=== PATIENT | female | born 2000 | race Caucasian/White ===

== ENCOUNTER 2020-04-03 15:05 | Emergency (ER) | payer OTHER ==
[2020-04-03] MEDS ORDERED: FENTANYL CITR 100 MCG/2 ML ONE (16:01)
--- NOTE | 2020-04-03 16:04 | ER ---
Nurse's Notes [facility] Name: Morenita El Age: 20 yrs Sex: Female : 2000 Arrival Date: 04/03/2020 Time: 15:07 Bed 13 Private MD: Diagnosis: Localized swelling, mass and lump, neck Presentation: 04/03 15:15 Chief complaint: Patient states: "I have a cyst on the right side of my neck that I jd3 have had for awhile. I was supposed to have it removed in October, but COVID cancelled my appointment. I feel it getting bigger and it hurts more. it is rock hard too.". Coronavirus screen: At this time, the client does not indicate any symptoms associated with coronavirus-19. Ebola Screen: Patient negative for fever greater than or equal to 101.5 degrees Fahrenheit, and additional compatible Ebola Virus Disease symptoms. Initial Sepsis Screen: Does the patient meet any 2 criteria? No. Patient's initial sepsis screen is negative. Does the patient have a suspected source of infection? No. Patient's initial sepsis screen is negative. Risk Assessment: Do you want to hurt yourself or someone else? Patient reports no desire to harm self or others. Onset of symptoms was April 03, 2020. 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 - Social history:: Smoking status: Patient reports the use of cigarette tobacco products, smokes 0.25 packs per day. Screenin:21 Abuse screen: Denies threats or abuse. Denies injuries from another. Nutritional ca1 screening: No deficits noted. Tuberculosis screening: No symptoms or risk factors identified. Fall Risk None identified. Assessment: 15:20 General: Appears in no apparent distress. comfortable, Behavior is calm, cooperative, ca1 appropriate for age. Pain: Complains of pain in right sternocleidomastoid Pain does not radiate. Pain currently is 8 out of 10 on a pain scale. Neuro: Level of Consciousness is awake, alert, obeys commands, Oriented to person, place, time, situation. Derm: Skin is intact, is healthy with good turgor, Skin is pink, warm \\T\\ dry. Cyst on right side of neck, hard and tender upon palpation. Pt reports, been there for 2 years. Was scheduled removal on October but has not been done. Pain just started. Musculoskeletal: Circulation, motion, and sensation intact. Capillary refill < 3 seconds. 16:13 Reassessment: Patient appears in no apparent distress at this time. Patient is alert, ca1 oriented x 3, equal unlabored respirations, skin warm/dry/pink. Vital Signs: 15:18 BP 154 / 100; Pulse 104; Resp 17 S; Temp 98.5(TE); Pulse Ox 100% on R/A; Weight 104.33 jd3 kg (R); Height 5 ft. 4 in. (162.56 cm) (R); Pain 7/10; 15:21 BP 138 / 86; Pulse 100; Resp 15 S; Pulse Ox 98% on R/A; ca1 16:13 BP 122 / 80; Pulse 98; Resp 15 S; Pulse Ox 99% on R/A; ca1 15:18 Body Mass Index 39.48 (104.33 kg, 162.56 cm) jd3 ED Course: 15:07 Patient arrived in ED. ds1 15:15 Cally Phipps, MIKHAIL is Primary Nurse. ca1 15:15 Jillian Ferguson FNP-C is PHCP. snw 15:15 Duane Saha MD is Attending Physician. snw 15:17 Triage completed. jd3 15:19 Arm band placed on. jd3 15:21 Patient has correct armband on for positive identification. Bed in low position. Call ca1 light in reach. Side rails up X 1. Pulse ox on. NIBP on. Warm blanket given. 16:14 No provider procedures requiring assistance completed. Patient did not have IV access ca1 during this emergency room visit. Administered Medications: 15:40 Drug: Clindamycin 300 mg Route: PO; ca1 16:07 Follow up: Response: No adverse reaction ca1 15:42 Drug: fentaNYL (PF) 50 mcg {Note: RASS 0.} Route: IM; Site: right gluteus; ca1 16:07 Follow up: Response: No adverse reaction; Pain is decreased; RASS: Alert and Calm (0) ca1 16:07 Drug: Jud 5 mg-325 mg 1 tabs {Note: RASS 0.} Route: PO; ca1 16:07 Follow up: Response: No adverse reaction; Medication administered at discharge. ca1 Outcome: 16:03 Discharge ordered by . fabio 16:14 Discharged to home ambulatory. ca1 16:14 Condition: stable 16:14 Discharge instructions given to patient, reports BF is waiting outside to drive her home Instructed on discharge instructions, follow up and referral plans. no drinking with medication, no driving heavy equipment, medication usage, Demonstrated understanding of instructions, follow-up care, medications, Prescriptions given X 2. 16:15 Patient left the ED. ca1 Signatures: Jillian Ferguson, LAB MANAGER-C LAB MANAGER-Csnw Cecilia Kaiser ds1 Laryr Garcia RN RN jCally Ferrera RN RN ca1 Corrections: (The following items were deleted from the chart) 15:23 15:20 Derm: Skin is intact, is healthy with good turgor, Skin is pink, warm \\T\\ dry. ca1 ca1 15:24 15:20 Derm: Skin is intact, is healthy with good turgor, Skin is pink, warm \\T\\ dry. lump ca1 on right side of neck, hard and tender upon palpation ca1 16:13 15:20 Derm: Skin is intact, is healthy with good turgor, Skin is pink, warm \\T\\ dry. lump ca1 on right side of neck, hard and tender upon palpation. Pt reports, been there for 2 years. Was scheduled removal on October but has not been done. Pain just started. ca1
--- NOTE | 2020-04-03 16:04 | EDPHYS ---
Physician Documentation [facility] Name: Morenita El Age: 20 yrs Sex: Female : 2000 Arrival Date: 04/03/2020 Time: 15:07 Bed 13 Private MD: ED Physician Duane Saha HPI: 04/03 16:05 This 20 yrs old Female presents to ER via Ambulatory with complaints of Cyst. snw 16:05 Onset: The symptoms/episode began/occurred gradually, 2 year(s) ago, and became worse 3 snw day(s) ago. Associated signs and symptoms: Pertinent positives: The patient does not have any pertinent positive signs or symptoms associated with pediatric illness. It is unknown whether or not the patient has had similar symptoms in the past. The patient has not recently seen a physician. supposed to have mass removed, pt states apt postponed 2nd to pandemic. 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 - Social history:: Smoking status: Patient reports the use of cigarette tobacco products, smokes 0.25 packs per day. ROS: 16:05 Constitutional: Negative for fever, chills, and weight loss, Eyes: Negative for injury, snw pain, redness, and discharge, ENT: Negative for injury, pain, and discharge, Cardiovascular: Negative for chest pain, palpitations, and edema, Respiratory: Negative for shortness of breath, cough, wheezing, and pleuritic chest pain, Abdomen/GI: Negative for abdominal pain, nausea, vomiting, diarrhea, and constipation, Back: Negative for injury and pain, : Negative for injury, bleeding, discharge, and swelling, MS/Extremity: Negative for injury and deformity, Skin: Negative for injury, rash, and discoloration, Neuro: Negative for headache, weakness, numbness, tingling, and seizure, Psych: Negative for depression, anxiety, suicide ideation, homicidal ideation, and hallucinations. 16:05 Neck: Positive for mass, tenderness, of the right sternocleidomastoid. Exam: 16:01 Constitutional: This is a well developed, well nourished patient who is awake, alert, snw and in no acute distress. Head/Face: Normocephalic, atraumatic. Eyes: Pupils equal round and reactive to light, extra-ocular motions intact. Lids and lashes normal. Conjunctiva and sclera are non-icteric and not injected. Cornea within normal limits. Periorbital areas with no swelling, redness, or edema. ENT: Nares patent. No nasal discharge, no septal abnormalities noted. Tympanic membranes are normal and external auditory canals are clear. Oropharynx with no redness, swelling, or masses, exudates, or evidence of obstruction, uvula midline. Mucous membranes moist. Chest/axilla: Normal chest wall appearance and motion. Nontender with no deformity. No lesions are appreciated. Respiratory: Lungs have equal breath sounds bilaterally, clear to auscultation and percussion. No rales, rhonchi or wheezes noted. No increased work of breathing, no retractions or nasal flaring. Abdomen/GI: Soft, non-tender, with normal bowel sounds. No distension or tympany. No guarding or rebound. No evidence of tenderness throughout. Back: No spinal tenderness. No costovertebral tenderness. Full range of motion. Skin: Warm, dry with normal turgor. Normal color with no rashes, no lesions, and no evidence of cellulitis. MS/ Extremity: Pulses equal, no cyanosis. Neurovascular intact. Full, normal range of motion. Neuro: Awake and alert, GCS 15, oriented to person, place, time, and situation. Cranial nerves II-XII grossly intact. Motor strength 5/5 in all extremities. Sensory grossly intact. Cerebellar exam normal. Normal gait. 16:01 Neck: External neck: no acute changes, mass, that is small, of the right sternocleidomastoid, that is tender to palpation, no erythema, + tenderness, + mobile, + spongy texture. 16:01 Cardiovascular: Rate: tachycardic, Rhythm: regular, Pulses: no pulse deficits are appreciated, Heart sounds: normal, Edema: is not appreciated. 16:01 Psych: Behavior/mood is cooperative, annoyed cyst is still there x 2 years. Vital Signs: 15:18 BP 154 / 100; Pulse 104; Resp 17 S; Temp 98.5(TE); Pulse Ox 100% on R/A; Weight 104.33 jd3 kg (R); Height 5 ft. 4 in. (162.56 cm) (R); Pain 7/10; 15:21 BP 138 / 86; Pulse 100; Resp 15 S; Pulse Ox 98% on R/A; ca1 16:13 BP 122 / 80; Pulse 98; Resp 15 S; Pulse Ox 99% on R/A; ca1 15:18 Body Mass Index 39.48 (104.33 kg, 162.56 cm) jd3 MDM: 15:16 Patient medically screened. snw 16:06 Data reviewed: vital signs, nurses notes. Data interpreted: Pulse oximetry: on room air snw is 98 %. Interpretation: normal. Counseling: I had a detailed discussion with the patient and/or guardian regarding: the historical points, exam findings, and any diagnostic results supporting the discharge/admit diagnosis, lab results, the need for outpatient follow up, to return to the emergency department if symptoms worsen or persist or if there are any questions or concerns that arise at home. Special discussion: I have referred the patient to see his PCP for further evaluation of high blood pressure. Based on the history and exam findings, there is no indication for further emergent testing or inpatient evaluation. I discussed with the patient/guardian the need to see the general surgeon for further evaluation of the symptoms. I discussed with the patient/guardian the need to see the primary care provider for further evaluation of the symptoms. Administered Medications: 15:40 Drug: Clindamycin 300 mg Route: PO; ca1 16:07 Follow up: Response: No adverse reaction ca1 15:42 Drug: fentaNYL (PF) 50 mcg {Note: RASS 0.} Route: IM; Site: right gluteus; ca1 16:07 Follow up: Response: No adverse reaction; Pain is decreased; RASS: Alert and Calm (0) ca1 16:07 Drug: [place] 5 mg-325 mg 1 tabs {Note: RASS 0.} Route: PO; ca1 16:07 Follow up: Response: No adverse reaction; Medication administered at discharge. ca1 Disposition: 04/03/20 16:03 Discharged to Home. Impression: Localized swelling, mass and lump, neck. - Condition is Stable. - Discharge Instructions: Lumpectomy, Care After, Lumpectomy. - Prescriptions for Clindamycin HCl 150 mg Oral Capsule - take 2 capsule by ORAL route every 8 hours for 10 days; 60 capsule. Ultram 50 mg Oral Tablet - take 1 tablet by ORAL route every 6 hours As needed; 12 tablet. - Medication Reconciliation Form, Thank You Letter, Antibiotic Education, Prescription Opioid Use, Work release form form. - Follow up: Private Physician; When: 2 - 3 days; Reason: Recheck today's complaints, Continuance of care, Re-evaluation by your physician. Follow up: Emergency Department; When: As needed; Reason: Worsening of condition. Addendum: 04/06/2020 08:22 Co-signature as Attending Physician, Duane Saha MD I agree with the assessment and k dr plan of care. Signatures: Duane Saha MD MD [facility] Jillian Ferguson, KILN PUSHER-C KILN PUSHER-Csnw Larry Garcia RN RN jd3 AcCally liz RN RN ca1 Corrections: (The following items were deleted from the chart) 04/03 16:15 16:03 04/03/2020 16:03 Discharged to Home. Impression: Localized swelling, mass and ca1 lump, neck. Condition is Stable. Forms are Medication Reconciliation Form, Thank You Letter, Antibiotic Education, Prescription Opioid Use. Follow up: Private Physician; When: 2 - 3 days; Reason: Recheck today's complaints, Continuance of care, Re-evaluation by your physician. Follow up: Emergency Department; When: As needed; Reason: Worsening of condition. snw
[2020-04-03] MEDS ORDERED: HYDROCODONE/APAP 5/325 MG TAB ONE (16:17)
[2020-04-03 16:26] VITALS: TEMP 98.5
[2020-04-03 16:36] VITALS: BP 122/80; O2SAT 99
== END 2020-04-03 16:15 | disposition home or self-care (01) ==
LOC: ER 15:05
DX: R22.1 Localized swelling, mass and lump, neck (principal); F17.210 Nicotine dependence, cigarettes, uncomplicated; Z88.2 Allergy status to sulfonamides
CPT/HCPCS: 96372; 99283; J3010

== ENCOUNTER 2020-04-08 09:32 | Day surgery (SDC) | payer OTHER ==
--- OUTSIDE RECORDS SUMMARY | 2020-04-08 09:38 | XMS REPORT | Continuity of Care Document ---
:2000 Author Organization [facility] t Address [address] [place] [address] Care Team Providers Name Role Phone Pcp, Does Not Have A Attending Clinician Rio WATSON Attending Clinician Doctor Unassigned, Name Attending Clinician Unavailable Problems This patient has no known problems. Allergies, Adverse Reactions, Alerts This patient has no known allergies or adverse reactions. Medications This patient has no known medications. Procedures This patient has no known procedures. Encounters Start End Encounter Admission Attending Care Care Encounter Source Date/Time Date/Time Type Type Clinicians Facility Department ID 2019-12-29 2019-12-29 Telephone EVAN Cruz [id number] 00:00:00 00:00:00 Patient Donny [id number] Does Not [place] [id number] Have A Professio [phone] formerly [facility] 188 [facility] 2019-10-29 2019-10-29 Office EVAN Pate [id number] 14:59:43 16:45:57 Visit Kavitha Hines [id number] [place] [id number] Casey [phone] formerly [facility] 377 [facility] 2019-10-29 2019-10-29 Orders Doctor SILVEIRA [id number] 00:00:00 00:00:00 Only Unassigned, PELON [id number] [place] [phone] [id number] Results This patient has no known results.
[2020-04-08 10:30] LABS: Basophils % 0.7 % (0-1.3); Hematocrit 43.3 % (36.0-45.0); Lymphocytes % 30.3 % (15.3-44.8); MPV 9.2 fL (7.6-11.3); RBC Red Blood Cell Count 5.03 M/uL (3.86-4.86)
[2020-04-08] MEDS ORDERED: Ringers Lactate 1,000 ML IV ONE (10:32)
[2020-04-08] MEDS ORDERED: CEFAZOLIN/SWI 2gm 2 GM/20 ML SYR ONE (10:36)
[2020-04-08 10:43] LABS: Potassium 3.4 mmol/L (3.5-5.1)
[2020-04-08] MEDS ORDERED: BUPIVACA 0.25%/EPI 0.0005% MDV 50 ML VIAL ONE (11:06)
[2020-04-08] MEDS ORDERED: propofoL 200 MG/20 ML VIAL IV ONE (11:09)
[2020-04-08] MEDS ORDERED: FENTANYL CITR 100 MCG/2 ML ONE (11:09)
[2020-04-08] MEDS ORDERED: MIDAZOLAM HCL 2 MG/2 ML INJ ONE (11:09)
[2020-04-08] MEDS ORDERED: ONDANSETRON 4 MG/2 ML VIAL ONE (11:10)
[2020-04-08] MEDS ORDERED: LIDOCAINE 2% MPF 5 ML VIAL ONE (11:10)
[2020-04-08] MEDS ORDERED: dexAMETHasone 10 MG/ML VIAL ONE (11:10)
--- NOTE | 2020-04-08 11:52 | P.OP ---
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
[2020-04-08] MEDS ORDERED: KETOROLAC 30 MG/ML INJ ONE (11:57)
--- NOTE | 2020-04-08 12:40 | OP ---
Date of Procedure: 04/08/2020 Surgeon: Kristian Glynn MD, Preoperative Diagnosis: Right neck cyst along the sternocleidomastoid. Postoperative Diagnosis: Right neck cyst along the sternocleidomastoid. Procedure Performed: Wide local excision of right neck cyst along the sternocleidomastoid. Anesthesia: General endotracheal with local with 0.25% Marcaine with epinephrine. Estimated Blood Loss: Less than 5 mL. Specimen: Debrided tissue and cultures for aerobic and anaerobic speciation. Findings: Infected sebaceous cyst of the right neck approximately 4 cm round with abscess. Complications: None Transferred to recovery room in good condition. Procedure In Detail: After informed was obtained, the patient was brought to the operating room and prepped draped in the usual sterile fashion. After adequate anesthesia was achieved, skin for approx imately 3.5 cm was taken down using a 15 blade down to subcutaneous tissues. Electrocautery was used to dissect down circumferentially down to the sternocleidomastoid containing cyst. Abscess material was encountered immediately along with evidence of infected sebaceous cyst. This appeared to have r uptured previously. I dissected circumferentially using blunt dissection down on top of the sternocl eidomastoid, not entering the fascia. I then ligated this using electrocautery and sent the specimen for pathologic examination. After obtaining cultures, I copiously irrigated the area. Hemostasis w as achieved with minimal electrocautery. The area was copiously irrigated once again, closed with an interrupted deep dermal layer of 3-0 Vicryl and the skin was closed with a 4-0 Monocryl in a running fashion. Dermabond was placed on top. The patient tolerated the procedure well without evidence of complication, transferred to PACU in good condition. All counts were correct at the end of the case . TK/MODL Voice ID: [id number] Report ID: [id number]
[2020-04-08 13:29] VITALS: TEMP 97.2
[2020-04-08 13:31] VITALS: BP 132/79; O2SAT 98
== END 2020-04-08 13:10 | disposition home or self-care (01) ==
LOC: OR 09:32
PROVIDERS: ATTEND Surgery
PROC: 0HB4XZZ Excision of Neck Skin, External Approach (ICD-10-PCS; principal; 2020-04-08 10:45)
DX: L72.0 Epidermal cyst (principal); L02.11 Cutaneous abscess of neck; F17.210 Nicotine dependence, cigarettes, uncomplicated; Z88.2 Allergy status to sulfonamides; Z11.59 Encounter for screening for other viral diseases
CPT/HCPCS: 87070; 85025; 80048; 36415; 87205; 84703; 88304; 87075; U0002; J2704; J2250; J3010; J1100; J0690; J7120; J2405; 88305

== ENCOUNTER 2021-01-27 11:19 | Emergency (ER) | payer OTHER ==
--- OUTSIDE RECORDS SUMMARY | 2021-01-27 11:22 | XMS REPORT | Continuity of Care Document ---
:2000 Author Organization [facility] t Address [address] [place] [address] Care Team Providers Name Role Phone Pcp, [...] Department ID 2019-12-29 2019-12-29 Telephone EVAN Cruz [id number] 00:00:00 00:00:00 Patient Donny [id number] Does Not [place] [id number] Have A Professio [phone] [facility] 188 [facility] 2019-10-29 2019-10-29 Office EVAN Pate [id number] 14:59:43 16:45:57 Visit Kavitha Hines [id number] [place] [id number] Casey [phone] [facility] 377 [facility] 2019-10-29 2019-10-29 Orders Doctor SILVEIRA [id number] 00:00:00 00:00:00 Only Unassigned, PELON [id number] [place] [phone] [id number] Results This patient has no known results.
[2021-01-27 12:16] LABS: Absolute Lymphocytes (CBC) 2.6 K/uL (0.7-4.9); Basophils % 0.8 % (0-1.3); Hematocrit 41.9 % (36.0-45.0); Lymphocytes % 34.1 % (15.3-44.8); MPV 9.2 fL (7.6-11.3); RBC Red Blood Cell Count 4.79 M/uL (3.86-4.86)
[2021-01-27 12:23] LABS: Protime INR 1.15
[2021-01-27 12:36] LABS: ALT/SGPT 29 U/L (12-78); AST/SGOT 13 U/L (15-37); Albumin 3.9 g/dL (3.4-5.0); Alkaline Phosphatase 85 U/L (45-117); BUN Blood Urea Nitrogen 11 mg/dL (7-18); Bicarbonate 25 mmol/L (21-32); Bilirubin Direct 0.2 mg/dL (0-0.2); Bilirubin Total 0.8 mg/dL (0.2-1.0); Glucose Level 83 mg/dL (74-106); Magnesium 2.5 mg/dL (1.8-2.4); NT PRO-BNP 67 pg/mL (<125); Potassium 3.7 mmol/L (3.5-5.1); Protein, Total 8.3 g/dL (6.4-8.2); Sodium Level 142 mmol/L (136-145); Troponin (Emerg Dept Use Only) < 0.02 ng/mL (0.0-0.045)
--- NOTE | 2021-01-27 12:59 | RAD REPORT ---
EXAM DESCRIPTION: RAD - Chest Single View - 01/27/2021 12:13 pm CLINICAL HISTORY: SOB Chest pain. COMPARISON: CHEST PA AND LAT 2 VIEW dated 03/12/2014 FINDINGS: Portable technique limits examination quality. The lungs are grossly clear. The heart is normal in size. No displaced fractures. IMPRESSION: No acute intrathoracic process suspected.
--- NOTE | 2021-01-27 13:55 | ER ---
Nurse's Notes [facility] Name: Morenita El Age: 20 yrs Sex: Female : 2000 Arrival Date: 01/27/2021 Time: 11:20 Bed 7 Private MD: Diagnosis: Acute pharyngitis;Acute upper respiratory infection, unspecified Presentation: 01/27 11:21 Chief complaint: Patient states: Reports right-sided "Lung" pain, sharp pain with jl7 inspiration since this morning, reports red throat this morning. Coronavirus screen: Client denies travel out of the [place] in the last 14 days. sore throat, Client presents with at least one sign or symptom that may indicate coronavirus-19. Standard/surgical mask placed on the client. Provider contacted for isolation considerations. Ebola Screen: No symptoms or risks identified at this time. Initial Sepsis Screen: Does the patient meet any 2 criteria? No. Patient's initial sepsis screen is negative. Does the patient have a suspected source of infection? No. Patient's initial sepsis screen is negative. Risk Assessment: Do you want to hurt yourself or someone else? Patient reports no desire to harm self or others. Onset of symptoms was January 27, 2021. Care prior to arrival: Tylenol Cold and Flu. 11:21 Method Of Arrival: Ambulatory [facility] 11:21 Acuity: SAYDA 3 jl7 Triage Assessment: 11:28 General: Appears in no apparent distress. uncomfortable, Behavior is calm, cooperative, jl7 appropriate for age. Pain: Complains of pain in right lateral posterior chest and right lateral anterior chest Pain currently is 2 out of 10 on a pain scale. Respiratory: Reports pain with respiration Onset: The symptoms/episode began/occurred this morning, the patient has mild shortness of breath. 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 - Social history:: Smoking status: Patient reports the use of cigarette tobacco products, cigars. Screenin:15 Abuse screen: Denies threats or abuse. Denies injuries from another. Nutritional hb screening: No deficits noted. Tuberculosis screening: No symptoms or risk factors identified. Fall Risk None identified. Assessment: 12:00 General: Appears in no apparent distress. Behavior is calm, cooperative. Pain: Pain hb currently is 2 out of 10 on a pain scale. Neuro: Level of Consciousness is awake, alert, obeys commands, Oriented to person, place, time, situation. Cardiovascular: Reports chest pain, Rhythm is regular. Respiratory: Reports shortness of breath Airway is patent Respiratory effort is even, unlabored, Respiratory pattern is regular, symmetrical. GI: : No signs and/or symptoms were reported regarding the genitourinary system. EENT: No signs and/or symptoms were reported regarding the EENT system. Derm: Skin is pink, warm \\T\\ dry. Musculoskeletal: No signs and/or symptoms reported regarding the musculoskeletal system. 12:56 Reassessment: Patient appears in no apparent distress at this time. Patient and/or hb family updated on plan of care and expected duration. Pain level reassessed. Patient is alert, oriented x 3, equal unlabored respirations, skin warm/dry/pink. 14:13 Reassessment: Patient appears in no apparent distress at this time. Patient and/or sv family updated on plan of care and expected duration. Pain level reassessed. Patient is alert, oriented x 3, equal unlabored respirations, skin warm/dry/pink. Patient states feeling better. Patient states symptoms have improved. Vital Signs: 11:21 BP 127 / 77; Pulse 85; Resp 21; Temp 98.5; Pulse Ox 99% ; Weight 104.33 kg; Height 5 jl7 ft. 4 in. (162.56 cm); Pain 2/10; 14:13 BP 113 / 70; Pulse 80; Resp 18; Pulse Ox 99% ; sv 11:21 Body Mass Index 39.48 (104.33 kg, 162.56 cm) jl7 ED Course: 11:20 Patient arrived in ED. ds1 11:27 Triage completed. jl7 11:28 Arm band placed on right wrist. jl7 11:30 Radha Turpin, MIKHAIL is Primary Nurse. ld1 11:32 Arvin Albright PA is PHCP. [facility] 11:32 Wilver Joe MD is Attending Physician. jmm 12:11 Inserted saline lock: 20 gauge in right antecubital area, using aseptic technique. ld1 Blood collected. 12:13 XRAY Chest (1 view) In Process Unspecified. EDMS 12:15 Patient has correct armband on for positive identification. Placed in gown. Bed in low hb position. Call light in reach. Side rails up X 1. nuclear monitoring technician on. Pulse ox on. NIBP on. 14:13 No provider procedures requiring assistance completed. IV discontinued, intact, sv bleeding controlled, No redness/swelling at site. Pressure dressing applied. Administered Medications: No medications were administered Outcome: 13:54 Discharge ordered by MD. pam 14:13 Discharged to home ambulatory. sv 14:13 Condition: stable 14:13 Discharge instructions given to patient, Instructed on discharge instructions, follow up and referral plans. medication usage, Demonstrated understanding of instructions, follow-up care, medications, Prescriptions given X 2. 14:14 Patient left the ED. sv Signatures: Dispatcher [employer] EDMS Shea Hendricks, RN RN Arvin Aguilar PA PA jmm Sanford, Demi ds1 Nhi Mcgrath RN RN Rai Leigh RN RN jl7 Radha Turpin RN RN ld1
--- NOTE | 2021-01-27 13:55 | EDPHYS ---
Physician Documentation [facility] Name: Morenita El Age: 20 yrs Sex: Female : 2000 Arrival Date: 01/27/2021 Time: 11:20 Bed 7 Private MD: ED Physician Wilver Joe HPI: 01/27 11:49 This 20 yrs old Female presents to ER via Ambulatory with complaints of jmm Breathing Difficulty. 11:49 Onset: The symptoms/episode began/occurred gradually, today. Modifying factors: The jmm symptoms are alleviated by nothing. the symptoms are aggravated by nothing. Associated signs and symptoms: Pertinent positives: sore throat. This is a 20 year old female with a history of PCOS that presents to the ED with complaints of sob, with pain on inhalation beginning this morning. Also complains of sore throat, shortness of breath. Patient states she nearly passed out at work. . 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 - Social history:: Smoking status: Patient reports the use of cigarette tobacco products, cigars. ROS: 11:49 Constitutional: Positive for fatigue. jmm 11:49 ENT: Positive for sore throat. 11:49 Respiratory: Positive for cough, shortness of breath. 11:49 All other systems are negative. Exam: 11:49 Constitutional: This is a well developed, well nourished patient who is awake, alert, jmm and in no acute distress. Head/Face: atraumatic. Eyes: EOMI, no conjunctival erythema appreciated 11:49 Neck: Trachea midline, Supple Chest/axilla: Normal chest wall appearance and motion. Cardiovascular: Regular rate and rhythm. No edema appreciated Respiratory: Normal respirations, no respiratory distress appreciated Abdomen/GI: Non distended, soft Back: Normal ROM Skin: General appearance color normal MS/ Extremity: Moves all extremities, no obvious deformities appreciated, no edema noted to the lower extremities Neuro: Awake and alert, normal gait Psych: Behavior is normal, Mood is normal, Patient is cooperative and pleasant 11:49 ENT: Posterior pharynx: erythema, that is mild. Vital Signs: 11:21 BP 127 / 77; Pulse 85; Resp 21; Temp 98.5; Pulse Ox 99% ; Weight 104.33 kg; Height 5 7 ft. 4 in. (162.56 cm); Pain 2/10; 14:13 BP 113 / 70; Pulse 80; Resp 18; Pulse Ox 99% ; sv 11:21 Body Mass Index 39.48 (104.33 kg, 162.56 cm) jl7 MDM: 11:49 Patient medically screened. [facility] 13:51 Data reviewed: vital signs, nurses notes. Counseling: I had a detailed discussion with pam the patient and/or guardian regarding: the historical points, exam findings, and any diagnostic results supporting the discharge/admit diagnosis, lab results, radiology results, the need for outpatient follow up, to return to the emergency department if symptoms worsen or persist or if there are any questions or concerns that arise at home. ED course: Patient is alert and non toxic in appearance in the ED. Normal VS. Advised to follow up with pcp and otherwise given strict return precautions. Patient understood and agrees with the plan of care. . 01/27 11:51 Order name: Basic Metabolic Panel; Complete Time: 12:40 [facility] 01/27 11:51 Order name: CBC with Diff; Complete Time: 12:21 [facility] 01/27 11:51 Order name: LFT's; Complete Time: 12:40 [facility] 01/27 11:51 Order name: Magnesium; Complete Time: 12:40 [facility] 01/27 11:51 Order name: NT PRO-BNP; Complete Time: 12:40 [facility] 01/27 11:51 Order name: PT-INR; Complete Time: 12:40 [facility] 01/27 11:51 Order name: Troponin (emerg Dept Use Only); Complete Time: 12:40 [facility] 01/27 11:51 Order name: D-Dimer; Complete Time: 12:40 [facility] 01/27 11:51 Order name: Strep; Complete Time: 12:40 [facility] 01/27 11:51 Order name: Flu; Complete Time: 12:40 [facility] 01/27 11:53 Order name: CPK; Complete Time: 13:10 [facility] 01/27 12:36 Order name: Throat Culture EDCT 01/27 13:18 Order name: SARS-COV-2 RT PCR; Complete Time: 13:24 [facility] 01/27 11:51 Order name: XRAY Chest (1 view); Complete Time: 13:01 [facility] 01/27 11:51 Order name: EKG; Complete Time: 11:52 [facility] 01/27 11:51 Order name: Cardiac monitoring; Complete Time: 12:12 [facility] 01/27 11:51 Order name: EKG - Nurse/Tech; Complete Time: 12:12 [facility] 01/27 11:51 Order name: IV Saline Lock; Complete Time: 12:12 [facility] 01/27 11:51 Order name: Labs collected and sent; Complete Time: 12:12 [facility] 01/27 11:51 Order name: O2 Per Protocol; Complete Time: 12:12 [facility] 01/27 11:51 Order name: O2 Sat Monitoring; Complete Time: 12:12 [facility] Administered Medications: No medications were administered Disposition: 14:36 Co-signature as Attending Physician, Wilver Joe MD. rn Disposition: 01/27/21 13:54 Discharged to Home. Impression: Acute pharyngitis, Acute upper respiratory infection, unspecified. - Condition is Stable. - Discharge Instructions: Pharyngitis, Upper Respiratory Infection, Adult. - Prescriptions for Zithromax Z- Stan 250 mg Oral Tablet - take 1 tablet by ORAL route as directed for 5 days Day 1 - take two (2) tablets one time. Day 2, 3, 4 , 5 take one (1) tablet once daily.; 6 tablet. Albuterol Sulfate 90 mcg/actuation - inhale 1-2 puff by INHALATION route every 4-6 hours; 1 Inhaler. - Medication Reconciliation Form, Thank You Letter, Antibiotic Education, Prescription Opioid Use, Work release form form. - Follow up: Private Physician; When: 2 - 3 days; Reason: Recheck today's complaints, Continuance of care, Re-evaluation by your physician. Signatures: Dispatcher [employer] [facility] Shea Hendricks, RN RN Arvin Aguilar PA PA jmm Nieto, Roman, MD MD rn Leal, Jahala, RN RN jl7 Corrections: (The following items were deleted from the chart) 12:21 11:52 CORONAVIRUS+MR.LAB.BRZ ordered. EDMS EDCT 14:14 13:54 01/27/2021 13:54 Discharged to Home. Impression: Acute pharyngitis; Acute upper sv respiratory infection, unspecified. Condition is Stable. Forms are Medication Reconciliation Form, Thank You Letter, Antibiotic Education, Prescription Opioid Use. Follow up: Private Physician; When: 2 - 3 days; Reason: Recheck today's complaints, Continuance of care, Re-evaluation by your physician. pam
[2021-01-27 14:51] VITALS: TEMP 98.5; O2SAT 99
[2021-01-27 14:52] VITALS: BP 113/70
--- NOTE | 2021-01-27 16:00 | EKG ---
Test Date: 2021-01-27 Test Time: 12:02:37 Client Service Consultant: HB MEASUREMENT RESULTS: Intervals: Rate: 66 OR: 132 QRSD: 92 QT: 398 QTc: 417 [place]: P: 21 OR: 132 QRS: 73 T: 40 INTERPRETIVE STATEMENTS: Normal sinus rhythm with sinus arrhythmia Normal ECG Compared to ECG 05/21/2015 12:44:41 No significant changes Electronically Signed On 01-27-21 15:59:53 CDT by Tadeo Chaudhry
== END 2021-01-27 14:14 | disposition home or self-care (01) ==
LOC: ER 11:19
DX: J06.9 Acute upper respiratory infection, unspecified (principal); F17.290 Nicotine dependence, other tobacco product, uncomplicated; Z20.822 Contact with and (suspected) exposure to COVID-19; Z88.2 Allergy status to sulfonamides
CPT/HCPCS: 93005; 87070; 85025; 80048; 36415; 83735; 82550; 85610; 85379; 80076; 87081; 84484; 83880; 87804 ×2; 71045; U0003; 99284